=== PATIENT | female | born 1935 | race Caucasian/White ===

== ENCOUNTER → 2019-05-21 | Outpatient (CLI) | payer MEDICARE, BC ==
--- NOTE | 2019-05-21 16:50 | PCVCIMAG ---
EXAM: RIGHT LOWER EXTREMITY ARTERIAL DUPLEX INDICATION: Peripheral Arterial Disease. Leg pain. FINDINGS: Right Leg: Satisfactory arterial waveforms throughout the common/profunda/superficial femoral, popliteal, anterior tibial, peroneal, and posterior tibial arteries. No flow limiting stenosis seen. IMPRESSION: No flow limiting stenosis in the right lower extremity. Incidental note is made of a 2.1 x 7.7 x 8.6 cm right popliteal cyst. LOC:[id number]
== END | disposition home or self-care (01) ==
LOC: PCVCIMAG 13:12
PROVIDERS: ATTEND Nuclear Medicine Nuclear Cardiology
DX: M71.21 Synovial cyst of popliteal space [Baker], right knee (principal); I82.411 Acute embolism and thrombosis of right femoral vein; I73.9 Peripheral vascular disease, unspecified; L97.919 Non-pressure chronic ulcer of unspecified part of right lower leg with unspecified severity; K25.0 Acute gastric ulcer with hemorrhage; I26.99 Other pulmonary embolism without acute cor pulmonale; M06.9 Rheumatoid arthritis, unspecified; R19.8 Other specified symptoms and signs involving the digestive system and abdomen; E78.2 Mixed hyperlipidemia; I47.1 Supraventricular tachycardia; I10 Essential (primary) hypertension; I25.10 Atherosclerotic heart disease of native coronary artery without angina pectoris
CPT/HCPCS: 93926; G0463

== ENCOUNTER → 2019-05-21 | Outpatient (CLI) | payer MEDICARE, BC | END | disposition home or self-care (01) | LOC: PCVCCLINIC 14:33 | PROVIDERS: ATTEND Nuclear Medicine Nuclear Cardiology | DX: I82.411 Acute embolism and thrombosis of right femoral vein (principal); L97.919 Non-pressure chronic ulcer of unspecified part of right lower leg with unspecified severity; K25.0 Acute gastric ulcer with hemorrhage; I26.99 Other pulmonary embolism without acute cor pulmonale; M06.9 Rheumatoid arthritis, unspecified; R19.8 Other specified symptoms and signs involving the digestive system and abdomen; E78.2 Mixed hyperlipidemia; I47.1 Supraventricular tachycardia; I10 Essential (primary) hypertension; I25.10 Atherosclerotic heart disease of native coronary artery without angina pectoris; Z95.828 Presence of other vascular implants and grafts | CPT/HCPCS: G0463 ==